=== PATIENT | female | born 1950 | race Caucasian/White ===

== ENCOUNTER → 2022-02-13 | Outpatient (CLI) | payer MEDICARE ==
[~2022-02-13] MED LIST: LISINOPRIL40 MG PO; PROZAC20 MG PO; [UNRECOGNIZED DRUG - REMARK]
== END ==
LOC: CT 11:23
PROVIDERS: ATTEND Internal Medicine
DX: J44.9 Chronic obstructive pulmonary disease, unspecified (principal); F17.210 Nicotine dependence, cigarettes, uncomplicated; Z85.118 Personal history of other malignant neoplasm of bronchus and lung
CPT/HCPCS: 71250

== ENCOUNTER → 2022-06-26 | Outpatient (CLI) | payer OTHER | LOC: CARD 09:45 | PROVIDERS: ATTEND Internal Medicine | DX: I65.23 Occlusion and stenosis of bilateral carotid arteries (principal) | CPT/HCPCS: 70551; 93880 ==

== ENCOUNTER → 2024-02-24 | Outpatient (REF) | payer OTHER ==
[~2024-02-24] MED LIST changes: +COQ-10100 MG PO; +FLAX SEED OIL1 EACH PO; +MULTI-VITAMIN1 EACH PO; +OZEMPIC2 MG/0.75 PO; +PRISTIQ ER50 MG PO; +VITAMIN C1000 MG PO; +VITAMIN D31250 MCG PO
== END ==
LOC: CARD 08:39
PROVIDERS: ATTEND Internal Medicine
DX: I73.9 Peripheral vascular disease, unspecified (principal)
CPT/HCPCS: 93925